=== PATIENT | male | born 1980 | race Caucasian/White ===

== ENCOUNTER 2018-04-15 00:27 | Emergency (ER) | payer BC ==
[~2018-04-15] VITALS: Ht 185.4 cm; Wt 97.7 kg
[~2018-04-15 00:27] MED LIST: HYDR28CR14 TOP
[2018-04-15 00:34] VITALS: BP 134/92
[2018-04-15] MEDS ORDERED: dexamethasone sod phosphate 10mg/ml inj IM STA (00:50)
[2018-04-15] MEDS ORDERED: PRED10TA PO (00:55)
== END 2018-04-15 01:22 | disposition home or self-care (01) ==
LOC: ER 00:28
DX: L23.7 Allergic contact dermatitis due to plants, except food (principal)
CPT/HCPCS: 96372; 99283; J1100

== ENCOUNTER 2019-12-25 08:15 | Emergency (ER) | payer BC ==
[~2019-12-25] VITALS: Ht 188 cm; Wt 93.2 kg
[~2019-12-25 08:15] MED LIST changes: +PRED10TA PO
[2019-12-25 08:23] VITALS: BP 135/90
== END 2019-12-25 08:55 | disposition home or self-care (01) ==
LOC: ER 08:16
DX: R05 Cough (principal); R50.9 Fever, unspecified; R06.02 Shortness of breath; Z20.828 Contact with and (suspected) exposure to other viral communicable diseases; Z79.899 Other long term (current) drug therapy
CPT/HCPCS: 36415; 99283; C9803

== ENCOUNTER 2023-07-15 11:07 | Outpatient (CLI) | payer BC ==
[2023-07-15 11:57] LABS: BASOPHILS % (AUTO) 0.4 % (0-1); EOSINOPHILS # (AUTO) 0.1 X10'3 (0-0.9); EOSINOPHILS % (AUTO) 2.5 % (0-6); HEMATOCRIT 43.1 % (42.0-52.0); HEMOGLOBIN 14.8 g/dl (14.0-17.9); LYMPHOCYTES # (AUTO) 1.8 X10'3 (1.1-4.8); MEAN CORPUSCULAR HEMOGLOBIN 29.1 PG (27.0-31.0); MEAN CORPUSCULAR HGB CONC 34.2 g/dL (33.0-36.5); MEAN PLATELET VOLUME 7.6 FL (7.4-10.4); MONOCYTES # (AUTO) 0.4 X10'3 (0-0.9); MONOCYTES % (AUTO) 7.9 % (2-12); NEUTROPHILS # (AUTO) 3.2 X10'3 (1.8-7.7); NEUTROPHILS % (AUTO) 57.2 % (42-75); PLATELET COUNT 202 X10'3 (140-440); RED BLOOD COUNT 5.08 X10'6 (4.70-6.10); RED CELL DISTRIBUTION WIDTH 13.2 % (11.5-14.5); WHITE BLOOD COUNT 5.5 X10'3 (4.5-11.0)
[2023-07-15 11:59] LABS: BILIRUBIN,URINE NEGATIVE (Neg); CLARITY,URINE CLEAR (Clear); COLOR,URINE YELLOW (Yellow); GLUCOSE, URINE NEGATIVE (Neg); KETONES,URINE NEGATIVE (Neg); LEUKOCYTE ESTERASE ,URINE NEGATIVE (Neg); NITRITES, URINE NEGATIVE (Neg); OCCULT BLOOD,URINE NEGATIVE (Neg); PH,URINE 5.5 (4.8-8.0); PROTEIN,URINE NEGATIVE (Neg); UROBILINOGEN,URINE 0.2 E.U/dL (0.2-1.0)
[2023-07-15 12:09] LABS: UA COLLECTION TYPE CLN CATCH MIDSTREAM
[2023-07-15 12:45] LABS: ALANINE AMINOTRANSFERASE 39 U/L (12-78); ALBUMIN 4.1 G/DL (3.4-5.0); ALBUMIN/GLOBULIN RATIO 1.2 (1.1-1.5); ALKALINE PHOSPHATASE 61 IU/L (46-116); ANION GAP 6 (8-16); ASPARTATE AMINO TRANSFERASE 36 U/L (10-37); BILIRUBIN,TOTAL 0.6 MG/DL (0.1-1.0); BLOOD UREA NITROGEN 18 MG/DL (7-18); BUN/CREATININE RATIO 18.6 (10.0-20.0); CALCIUM 9.1 MG/DL (8.5-10.1); CHLORIDE 104 MMOL/L (99-107); CHOL/HDL RATIO 2.9 (0.00-4.99); CHOLESTEROL 213 MG/DL (0-200); CREATININE 0.97 MG/DL (0.60-1.10); GLUCOSE 86 MG/DL (70-104); HDL CHOLESTEROL 74 MG/DL (35-60); LDL CHOLESTEROL 112 MG/DL (50-100); POTASSIUM 4.5 MMOL/L (3.5-5.1); SODIUM 139 MMOL/L (135-145); TOTAL PROTEIN 7.4 G/DL (6.4-8.2); TRIGLYCERIDES 31 MG/DL (20-135); eGFR 86 ML/MIN
[2023-07-15 13:07] LABS: FREE T4 (FREE THYROXINE) 1.01 NG/DL (0.73-1.40)
== END 2023-07-15 23:59 | disposition home or self-care (01) ==
LOC: LAB 11:07
PROVIDERS: ATTEND Family Medicine
DX: Z00.01 Encounter for general adult medical examination with abnormal findings (principal)
CPT/HCPCS: 36415; 80053; 80061; 81003; 84439; 84443; 85025

== ENCOUNTER 2024-10-12 16:46 | Outpatient (CLI) | payer BC ==
[2024-10-12 17:12] LABS: BASOPHILS % (AUTO) 0.5 % (0-1); EOSINOPHILS # (AUTO) 0.1 X10'3 (0-0.9); EOSINOPHILS % (AUTO) 2.5 % (0-6); HEMATOCRIT 41.8 % (42.0-52.0); HEMOGLOBIN 14.2 g/dl (14.0-17.9); LYMPHOCYTES # (AUTO) 2.3 X10'3 (1.1-4.8); LYMPHOCYTES % (AUTO) 37.6 % (21-51); MEAN CORPUSCULAR HEMOGLOBIN 28.5 PG (27.0-31.0); MEAN CORPUSCULAR VOLUME 83.9 FL (78-98); MONOCYTES # (AUTO) 0.4 X10'3 (0-0.9); MONOCYTES % (AUTO) 7.4 % (2-12); NEUTROPHILS # (AUTO) 3.2 X10'3 (1.8-7.7); PLATELET COUNT 253 X10'3 (140-440); RED BLOOD COUNT 4.98 X10'6 (4.70-6.10); RED CELL DISTRIBUTION WIDTH 13.7 % (11.5-14.5); WHITE BLOOD COUNT 6.1 X10'3 (4.5-11.0)
== END 2024-10-12 23:59 | disposition home or self-care (01) ==
LOC: RAD 16:46
PROVIDERS: ATTEND Hospitalist
DX: J31.2 Chronic pharyngitis (principal)
CPT/HCPCS: 36415; 84630; 85025

== ENCOUNTER 2024-11-19 12:45 | Outpatient (CLI) | payer BC ==
[2024-11-19] MEDS ORDERED: iohexol 300mg/ml 100ml inj. ONE (13:24)
--- NOTE | 2024-11-19 14:24 | RADIOLOGY REPORT ---
EXAM: CT CT NECK SOFT TISSUES W/ IV CONTRAST HISTORY: PAIN IN THROAT;TONSIL ASYMMETRY COMPARISON: None TECHNIQUE: Helical CT images of the neck were performed with and without 100 ml omnipaque 300 IV cont rast. Sagittal and coronal reformatted images were obtained. This CT exam was performed using one or more of the following dose reduction techniques: Automated exposure control, adjustment of the mA and /or kV according to patient size, or use of iterative reconstruction technique. Radiation Dose Inform ation: CT Dose: CTDI volume is 30.54 mGy. Dose-length product is 882.14 mGy*cm FINDINGS: No radiologically significant cervical lymphadenopathy or mass. There is hypertrophy of the palatine and lingual tonsils without significant airway narrowing or evidence of tonsillar abscess. There are small calcifications in the palatine tonsils. The airway is patent. The vocal cords are sym metric. No abnormal thickening of the epiglottis. The parotid glands, submandibular glands, and thyro id are unremarkable. There is mild mucosal thickening of the left maxillary sinus. The external sandra tory canals, middle ear spaces, and mastoid air cells are clear. The bilateral carotid arteries, vert ebral arteries, and internal jugular veins are patent. The right vertebral artery is dominant, and th e left vertebral artery is diffusely hypoplastic. The lung apices are clear. There is question of mil d subcutaneous edema involving the bilateral mandibular and submandibular regions versus artifactual appearance. IMPRESSION: 1. Hypertrophy of the palatine and lingual tonsils, without evidence of tonsillar abscess or signific ant airway narrowing. 2. No radiologically significant cervical mass or lymphadenopathy. 3. Mild left maxillary sinus disease.
== END 2024-11-19 23:59 | disposition home or self-care (01) ==
LOC: RAD 12:45
PROVIDERS: ATTEND Otolaryngology
DX: J35.1 Hypertrophy of tonsils (principal); R07.0 Pain in throat; J39.2 Other diseases of pharynx
CPT/HCPCS: 70492; Q9967